=== PATIENT | female | born 1955 | race Caucasian/White ===

== ENCOUNTER 2017-02-03 00:18 | Emergency (ER) | payer OTHER ==
[~2017-02-03] VITALS: Ht 162.6 cm; Wt 56.7 kg
[2017-02-03] MEDS ORDERED: HYDROCHLOROTHIAZIDE 50 MG TAB (00:38)
[2017-02-03] MEDS ORDERED: LETROZOLE 2.5 MG TABLET (00:38)
[2017-02-03] MEDS ORDERED: ESZOPICLONE 1 MG TABLET (00:38)
[2017-02-03] MEDS ORDERED: LOSARTAN POTASSIUM 100 MG TAB (00:38)
[2017-02-03] MEDS ORDERED: CLONAZEPAM 1 MG TABLET (00:38)
[2017-02-03] MEDS ORDERED: CARVEDILOL 12.5 MG TABLET (00:38)
--- NOTE | 2017-02-03 00:41 | NUR ---
Pt ambulated to room with steady gait. Pt c/o headache, jaw pain and lac to back of head s/p syncopal episode. Pt alert and oriented x 4, no neuro deficits noted at this time. Pt seen by . Laceration repair done by Dr. Garcia with ness. Pt resting in position of comfort for self. Awaiting further orders.
--- NOTE | 2017-02-03 01:03 | NUR ---
Simple bulky drsg applied to head laceration. Pt stable for discharge per MD. Pt and family given ACI. Both verbalized understanding of dc instructions. Pt ambulated out of er with steady gait.
[2017-02-03 01:05] VITALS: BP 131/72
== END 2017-02-03 01:17 | disposition home or self-care (01) ==
LOC: ER 00:28
DX: S01.01XA Laceration without foreign body of scalp, initial encounter (principal); I10 Essential (primary) hypertension; Z88.6 Allergy status to analgesic agent; W18.30XA Fall on same level, unspecified, initial encounter; Y93.89 Activity, other specified; Y99.8 Other external cause status; Y92.89 Other specified places as the place of occurrence of the external cause
CPT/HCPCS: 12001; 99283; A4663